=== PATIENT | male | born 1970 | race Caucasian/White ===

== ENCOUNTER 2017-11-04 14:05 | Emergency (ER) | payer BC ==
[2017-11-04] MEDS ORDERED: Sodium Chloride 0.9% 10 ML Syringe FLUSH PRN (14:19)
[2017-11-04] MEDS ORDERED: Aspirin 81 MG Tab.Chew PO ONE (14:19)
[2017-11-04] MEDS ORDERED: Ondansetron 4 MG/2 ML SDV IVPUSH ONE (14:19)
--- NOTE | 2017-11-04 14:27 | EDM.PDOC ---
ED HPI GENERAL MEDICAL PROBLEM - General Chief Complaint: Chest Pain Stated Complaint: ARM PAIN/CHEST PAIN Time Seen by Provider: 11/04/17 14:07 Source of Information: Reports: Patient History Limitations: Reports: No Limitations - History of Present Illness INITIAL COMMENTS - FREE TEXT/NARRATIVE: 47-year-old male sent over from [facility] for evaluation and treatment of chest pain. Patient reports on Friday he developed pain in left shoulder. States that yesterday he developed substernal chest pain that he describes as a heaviness. He has also been experiencing low back pain but this seems to be improving. Reports associated symptoms of diaphoresis abd nausea. No fevers, cough, shortness of breath, lightheadedness, dizziness, headaches, syncope or vomiting. patient is also complaining of low back pain. He states that this low back pain has improved. Patient also complains of abdominal cramps. States is located in the upper abdomen. Reports associated diarrhea. States she's had about 6 episodes of diarrhea today. Patient also complains of lower leg cramping. States he's been having cramps in the left lower leg for the past few days. No swelling to the leg. patient has a past cardiac history including paroxysmal A. fib. Currently on effient. 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 States this was due to his A. fib. No previous MIs. Duration: Day(s): (2) Location: Reports: Chest, Abdomen, Back Abdominal Pain Score (Numeric/FACES): 6 - Related Data Allergies Allergy/AdvReac Type Severity Reaction Status Date / Time hydromorphone [From Dilaudid] Allergy Itching Verified 11/04/17 15:05 Home Meds: Home Meds Apixaban [Eliquis] 5 mg PO BID 11/04/17 [History] Cyanocobalamin (Vitamin B-12) [B-12] 1,000 mcg PO DAILY 11/04/17 [History] Diltiazem [Tiazac] 240 mg PO DAILY 11/04/17 [History] Flecainide [Tambocor] 100 mg PO Q12H 11/04/17 [History] Hydrocortisone Acetate 25 mg RC BID 11/04/17 [History] Ondansetron [Zofran ODT] 4 mg PO Q6H PRN #12 tab.dis 11/04/17 [Rx] ED ROS GENERAL - Review of Systems Review Of Systems: See Below Constitutional: Reports: Malaise. Denies: Fever Respiratory: Denies: Shortness of Breath, Cough Cardiovascular: Reports: Chest Pain. Denies: Edema, Lightheadedness, Syncope GI/Abdominal: Reports: Abdominal Pain, Diarrhea, Nausea. Denies: Hematochezia, Melena, Vomiting Musculoskeletal: Reports: Back Pain, Leg Pain (leg cramps, no swelling) Neurological: Denies: Headache, Syncope ED EXAM, GENERAL - Physical Exam Exam: See Below Exam Limited By: No Limitations General Appearance: Alert, WD/WN, No Apparent Distress, Anxious, Obese Eye Exam: Bilateral Eye: Normal Inspection Ears: Normal External Exam Nose: Normal Inspection Throat/Mouth: Normal Inspection, Normal Lips, Normal Voice, No Airway Compromise Respiratory/Chest: No Respiratory Distress, Lungs Clear, Normal Breath Sounds, Chest Non-Tender Cardiovascular: Normal Peripheral Pulses, Regular Rate, Rhythm, No Murmur Peripheral Pulses: 2+: Posterior Tibial (L), Posterior Tibial (R), Dorsalis Pedis (L), Dorsalis Pedis (R) GI/Abdominal: Soft, Tender (upper abdomen, epigastric) Neurological: Alert, Oriented, Normal Cognition Psychiatric: Normal Affect, Normal Mood Skin Exam: Warm, Dry, Normal Color EKG INTERPRETATION EKG Date: 11/04/17 Time: 14:15 Rhythm: NSR Rate (Beats/Min): 75 [place]: LAD-Left [place] Deviation P-Wave: Present QRS: Normal ST-T: Normal QT: Normal Comparison: NA - No Prior EKG EKG Interpretation Comments: NSR at 75 bpm. No ischemic changes. + LAD. No LVH. Reviewed by myself and Dr. Garcia. Course - Vital Signs Last Recorded V/S: Last Vital Signs Temp 36.9 C 11/04/17 14:21 Pulse 74 11/04/17 14:21 Resp 16 11/04/17 14:21 BP 147/95 H 11/04/17 14:21 Pulse Ox 97 11/04/17 14:21 - Orders/Labs/Meds Labs: Laboratory Tests 11/04/17 11/04/17 11/04/17 Range/Units 14:55 14:55 14:55 WBC 6.65 (4.23-9.07) K/mm3 RBC 5.48 (4.63-6.08) M/mm3 Hgb 15.5 (13.7-17.5) gm/L Hct 46.4 (40.1-51.0) % MCV 84.7 (79.0-92.2) fl MCH 28.3 (25.7-32.2) pg MCHC 33.4 (32.2-35.5) g/dl RDW Std Deviation 40.9 (35.1-43.9) fL Plt Count 171 (163-337) K/mm3 MPV 9.8 (9.4-12.3) fl Neutrophils % (Manual) 70 H (40-60) % Band Neutrophils % 2 (0-10) % Lymphocytes % (Manual) 26 (20-40) % Atypical Lymphs % 0 % Monocytes % (Manual) 1 L (2-10) % Eosinophils % (Manual) 1 (0.8-7.0) % Basophils % (Manual) 0 L (0.2-1.2) Platelet Estimate Adequate RBC Morph Comment Normal PT 11.0 (8.0-13.0) SECONDS INR 1.03 APTT 35 (22-36) SECONDS D-Dimer, Quantitative 0.50 (0.19-0.59) mg/L Sodium 143 (136-145) mEq/L Potassium 4.1 (3.5-5.1) mEq/L Chloride 106 (98-107) mEq/L Carbon Dioxide 25 (21-32) mEq/L Anion Gap 16.1 H (5-15) BUN 16 (7-18) mg/dL Creatinine 1.4 H (0.7-1.3) mg/dL Est Cr Clr Drug Dosing 55.52 mL/min Estimated GFR (MDRD) 54 (>60) mL/min BUN/Creatinine Ratio 11.4 L (14-18) Glucose 92 (74-106) mg/dL Calcium 8.8 (8.5-10.1) mg/dL Magnesium 2.0 (1.8-2.4) mg/dl Total Bilirubin 0.5 (0.2-1.0) mg/dL AST 16 (15-37) U/L ALT 30 (16-63) U/L Alkaline Phosphatase 91 (46-116) U/L CK-MB (CK-2) < 0.5 (0-3.6) ng/ml Troponin I < 0.017 (0.00-0.056) ng/mL C-Reactive Protein 1.8 H* (<1.0) mg/dL Total Protein 7.0 (6.4-8.2) g/dl Albumin 3.9 (3.4-5.0) g/dl Globulin 3.1 gm/dL Albumin/Globulin Ratio 1.3 (1-2) Lipase 72 L (73-393) U/L Urine Color (Yellow) Urine Appearance (Clear) Urine pH (5.0-8.0) Ur Specific Dennis (1.005-1.030) Urine Protein (Negative) Urine Glucose (UA) (Negative) Urine Ketones (Negative) Urine Occult Blood (Negative) Urine Nitrite (Negative) Urine Bilirubin (Negative) Urine Urobilinogen (0.2-1.0) Ur Leukocyte Esterase (Negative) Urine RBC (0-5) /hpf Urine WBC (0-5) /hpf Ur Epithelial Cells (0-5) /hpf Urine Bacteria (FEW) /hpf Urine Mucus (FEW) /hpf 04/03/18 Range/Units 16:51 WBC (4.23-9.07) K/mm3 RBC (4.63-6.08) M/mm3 Hgb (13.7-17.5) gm/L Hct (40.1-51.0) % MCV (79.0-92.2) fl MCH (25.7-32.2) pg MCHC (32.2-35.5) g/dl RDW Std Deviation (35.1-43.9) fL Plt Count (163-337) K/mm3 MPV (9.4-12.3) fl Neutrophils % (Manual) (40-60) % Band Neutrophils % (0-10) % Lymphocytes % (Manual) (20-40) % Atypical Lymphs % % Monocytes % (Manual) (2-10) % Eosinophils % (Manual) (0.8-7.0) % Basophils % (Manual) (0.2-1.2) Platelet Estimate RBC Morph Comment PT (8.0-13.0) SECONDS INR APTT (22-36) SECONDS D-Dimer, Quantitative (0.19-0.59) mg/L Sodium (136-145) mEq/L Potassium (3.5-5.1) mEq/L Chloride (98-107) mEq/L Carbon Dioxide (21-32) mEq/L Anion Gap (5-15) BUN (7-18) mg/dL Creatinine (0.7-1.3) mg/dL Est Cr Clr Drug Dosing mL/min Estimated GFR (MDRD) (>60) mL/min BUN/Creatinine Ratio (14-18) Glucose (74-106) mg/dL Calcium (8.5-10.1) mg/dL Magnesium (1.8-2.4) mg/dl Total Bilirubin (0.2-1.0) mg/dL AST (15-37) U/L ALT (16-63) U/L Alkaline Phosphatase (46-116) U/L CK-MB (CK-2) (0-3.6) ng/ml Troponin I (0.00-0.056) ng/mL C-Reactive Protein (<1.0) mg/dL Total Protein (6.4-8.2) g/dl Albumin (3.4-5.0) g/dl Globulin gm/dL Albumin/Globulin Ratio (1-2) Lipase (73-393) U/L Urine Color Yellow (Yellow) Urine Appearance Clear (Clear) Urine pH 6.5 (5.0-8.0) Ur Specific Dennis > or = 1.030 (1.005-1.030) Urine Protein Negative (Negative) Urine Glucose (UA) Negative (Negative) Urine Ketones Negative (Negative) Urine Occult Blood Negative (Negative) Urine Nitrite Negative (Negative) Urine Bilirubin Negative (Negative) Urine Urobilinogen 0.2 (0.2-1.0) Ur Leukocyte Esterase Negative (Negative) Urine RBC Not seen (0-5) /hpf Urine WBC 0-5 (0-5) /hpf Ur Epithelial Cells 0-5 (0-5) /hpf Urine Bacteria Not seen (FEW) /hpf Urine Mucus Not seen (FEW) /hpf Meds: Medications Discontinued Medications Generic Name Dose Route Start Last Admin Trade Name Freq PRN Reason Stop Dose Admin Aspirin 324 mg 11/04/17 14:19 11/04/17 15:06 Aspirin PO 11/04/17 14:20 324 mg ONETIME ONE Administration Diatrizoate Meglum/Diatrizoate Sod 90 ml 11/04/17 17:40 11/04/17 17:56 Gastrografin 37% PO 11/04/17 17:41 90 ml ONETIME ONE Administration Sodium Chloride 1,000 mls @ 999 mls/hr 11/04/17 15:58 11/04/17 16:04 Normal Saline IV 11/04/17 16:58 999 mls/hr ONETIME ONE Administration Sodium Chloride 500 mls @ 999 mls/hr 11/04/17 18:06 11/04/17 18:11 Normal Saline IV 11/04/17 18:36 999 mls/hr ONETIME ONE Administration Iopamidol 100 ml 11/04/17 17:40 11/04/17 17:56 Isovue-370 (76%) IVPUSH 11/04/17 17:41 100 ml ONETIME ONE Administration Morphine Sulfate 2 mg 11/04/17 14:59 11/04/17 15:08 Morphine IVPUSH 11/04/17 15:00 2 mg ONETIME ONE Administration Ondansetron HCl 4 mg 11/04/17 14:19 11/04/17 15:05 Zofran IVPUSH 11/04/17 14:20 4 mg ONETIME ONE Administration Sodium Chloride 10 ml 11/04/17 14:19 11/04/17 15:09 Saline Flush FLUSH 10 ml ASDIRECTED PRN Administration Keep Vein Open - Radiology Interpretation Free Text/Narrative:: Chest: Portable view of the chest was obtained. Comparison: No previous chest x-ray. Heart size is normal. Tortuous thoracic aorta is seen. Lungs are clear. Bony structures are grossly intact. Impression: 1. Nothing acute is seen on portable chest x-ray. CT of the chest with IV contrast impression per [facility]: subsegmental atelectasis in both lung bases. 2. No signs of aortic dissection CT of the abdomen and pelvis with IV and oral contrast impression per vrad: 1. 3.2 cm left inguinal hernia that does not contain bowel . 2. No sign of diverticulitis or other acute abnormality in the abdomen or pelvis. - Re-Assessments/Exams Free Text/Narrative Re-Assessment/Exam: 11/04/17 16:45 Influenza returned negative. I reviewed the chest x-ray, EKG and labs with the patient. He questions if he had diverticulitis. Reports he was diagnosed with diverticulitis, as seen on CT , at the walk-in clinic earlier this year. He continues to complain of severe shoulder pain. I did give him some morphine for the pain. Question if he has something like a dissection, however, he does not present like a classic dissection I will get a CT of his chest, abdomen and pelvis to rule out a dissection as well to eval for diverticulitis. Nursing staff also inform me he was having more constipation over the last few days. He did take a bottle make citrate earlier today. This is likely was causing his diarrhea. 11/04/17 19:[address] results the patient. Will discharge home at this time. Discharge instructions as documented. Departure - Departure Time of Disposition: 19:27 Disposition: Home, Self-Care 01 Condition: Fair Clinical Impression: Viral gastroenteritis Prescriptions: Ondansetron [Zofran ODT] 4 mg PO Q6H PRN #12 tab.dis PRN Reason: Nausea Instructions: Viral Gastroenteritis, Adult, [id number] Referrals: PCP,Not In Area [Primary Care Provider] - Forms: ED Department Discharge Additional Instructions: Zofran 1 tab sublingual every 6 hours as needed for nausea. [id number] Tylenol or Motrin as needed for headaches and body aches. Rest. make sure you are are drinking plenty of fluids. Follow-up with your primary care provider if you're not much better by early next week. Please return to ER if your symptoms change or worsen.
[2017-11-04] MEDS ORDERED: Morphine 2 MG/ML Syringe IVPUSH ONE (14:59)
--- NOTE | 2017-11-04 15:53 | CR ---
Chest: Portable view of the chest was obtained. Comparison: No previous chest x-ray. Heart size is normal. Tortuous thoracic aorta is seen. Lungs are clear. Bony structures are grossly intact. Impression: 1. Nothing acute is seen on portable chest x-ray. Diagnostic code #1
[2017-11-04] MEDS ORDERED: Sodium Chloride 0.9% 1,000 ML IV ONE (15:58)
[2017-11-04] MEDS ORDERED: Iopamidol 755 Mg/ML 100 ML Bottle IVPUSH ONE (17:40)
[2017-11-04] MEDS ORDERED: Diatrizoate Meglumine/Diatrizoate Sodium 37% 120 ML Bottle PO ONE (17:40)
[2017-11-04] MEDS ORDERED: Sodium Chloride 0.9% 500 ML IV ONE (18:06)
--- NOTE | 2017-11-05 08:30 | CT ---
CT chest Technique: Multiple axial sections through the chest are obtained. Intravenous contrast was utilized. Comparison: No prior chest CT, prior chest x-ray performed earlier on the same day is available (2:24 PM). Findings: No larger pulmonary emboli are seen. Aorta shows no aneurysmal dilatation. No dissection is seen within the aorta. Mediastinum and hilar regions show no adenopathy or mass. No axillary adenopathy is seen. No pericardial thickening is seen. Lung window setting shows mild atelectasis within both posterior lung bases. Small air cyst is identified within the right middle lobe measuring about 7 mm. Small ground-glass nodule is identified within the upper right lung measuring 7 mm. Lungs otherwise are clear. Bone window settings were reviewed which show mild degenerative change within the spine. Impression: 1. 7 mm ground-glass nodule within the right upper lung. If patient is a smoker recommend follow-up noncontrast chest CT in 6 months. If patient is not a smoker recommend repeat noncontrast chest CT in one year. 2. Mild posterior atelectasis within both lung bases. 3. No additional abnormality is identified on CT study of the chest. Diagnostic code #9 I mostly agree with preliminary report issued by [facility], additional finding of ground-glass nodule for which follow-up has been recommended ([employer] preliminary report dictated on 11/04/17, 8:13 PM Central Time) CT abdomen and pelvis Technique: Multiple axial sections were obtained from above the dome of the diaphragm inferiorly to the pubic symphysis. Intravenous and oral contrast has been given. Comparison: No prior abdominal imaging. Findings: Liver shows no focal parenchymal abnormality. Spleen appears within normal limits. Adrenal glands show no nodule. Pancreas is within normal limits. Surgical clips are seen from previous cholecystectomy. Kidneys show symmetric contrast enhancement without hydronephrosis. Small focal scar is seen within the mid right kidney. Aorta shows no aneurysmal dilatation. No dissection is seen. No retroperitoneal adenopathy or mesenteric abnormalities are seen. Small fat-containing umbilical hernia is noted. Small fat-containing left inguinal hernia is noted. No free fluid or inflammatory change is seen within the abdomen or pelvis. Appendix is not visualized. Bone window settings were reviewed which show mild degenerative change scattered within the spine. Impression: 1. Incidental findings. Nothing acute is seen on CT study of the abdomen and pelvis. Diagnostic code #2 I agree with preliminary report issued by [facility] ([facility] preliminary report dictated on 11/04/17, 8:13 PM Central Time)
== END 2017-11-04 19:34 | disposition home or self-care (01) ==
LOC: JD.ED 14:05
DX: A08.4 Viral intestinal infection, unspecified (principal); Z88.5 Allergy status to narcotic agent; Z79.899 Other long term (current) drug therapy
CPT/HCPCS: 36415; 71045; 71260; 74177; 80053; 81001; 82553; 83690; 83735; 84484; 85025; 85379; 85610; 85730; 86140; 87804; 93005; 96361; 96374; 96375; 99285; A9270; J2270; J2405; J7040; J7050; Q9963; Q9967